=== PATIENT | female | born 1935 | race Caucasian/White ===

== ENCOUNTER 2016-11-10 11:53 | Observation (INO) | payer MEDICARE, BC ==
[2016-11-10] MEDS ORDERED: Aspirin Low Dose CHEW TAB* 81 MG PO ONE (12:30)
--- NOTE | 2016-11-10 12:55 | RAD ---
HISTORY: Chest pain COMPARISONS: November 24, 2007 VIEWS:1: Single frontal portable view of the chest at 12:35 PM FINDINGS: LINES AND TUBES: None. CARDIOMEDIASTINAL SILHOUETTE: The cardiomediastinal silhouette is normal for portable technique. PLEURA: The costophrenic angles are sharp. No pleural abnormalities are noted. LUNG PARENCHYMA: There is hyperinflation. ABDOMEN: The upper abdomen is clear. There is no subphrenic gas. BONES AND SOFT TISSUES: No bone or soft tissue abnormalities are noted. IMPRESSION: HYPERINFLATION NO ACTIVE CARDIOPULMONARY DISEASE.
[2016-11-10 12:56] LABS: Hematocrit 42 % (35-47); Hemoglobin 14.2 g/dl (12.0-16.0); Mean Corpuscular HGB Conc 34 g/dl (31-36); Mean Corpuscular Hemoglobin 33 pg (27-31); Mean Corpuscular Volume 97 fL (80-97); Mean Platelet Volume 10 um3 (7.4-10.4); Red Blood Count 4.35 10^6/ul (4.0-5.4); Red Cell Distribution Width 13 % (10.5-15); White Blood Count 8.1 10^3/ul (3.5-10.8)
[2016-11-10 13:08] LABS: ALT 23 U/L (7-52); Albumin 4.3 g/dL (3.2-5.2); Alkaline Phosphatase 62 U/L (34-104); BUN/Creatinine Ratio 27.9 (8-20); Blood Urea Nitrogen 19 mg/dL (6-24); CO2 Carbon Dioxide 23 mmol/L (22-32); Calcium 8.8 mg/dL (8.6-10.3); Chloride 102 mmol/L (101-111); EGFR African American 107.6 (>60); EGFR Non-African American 83.7 (>60); Globulin 3.3 g/dL (2-4); Glucose 122 mg/dL (70-100); Sodium 132 mmol/L (133-145); Total Protein 7.6 g/dL (6.4-8.9)
--- NOTE | 2016-11-10 14:29 | ED ---
Alejandrina Young Salem, scribed for Abel Beth MD on 11/10/16 at 1253 . Palpitations / Dysrhythmia - HPI Summary HPI Summary: Patient is a 80 y/o female who presents to the ED per EMS with palpitations since earlier today. She states she was hurrying her steps, but not running when her chest began to feel heavy. She then felt chest tightness, palpitations , weakness in the upper extremities (above the elbow), and discomfort between the shoulder blades. She denies lightheadedness or dizziness. She reports she then experienced two spells of general weakness and had to sit down. She also reports she received 3 81mg ASA at Urgent Care and took one at home before going to . She states she is physically active and that she walks a mile a day , twice a day and does core exercises in the pool. She reports taking Fosamax once a week. Her last Stress test was approximately 3 years ago. - History of Current Complaint Chief Complaint: EDDysrhythmPalp Time Seen by Provider: 11/10/16 12:09 Hx Obtained From: Patient, Family/Leaf Tinner Onset/Duration: Gradual Onset, Lasting Hours, Resolved Timing: Constant Severity Initially: Moderate Severity Currently: Moderate Character: Fast Aggravating: Exertion - Mild. Alleviating: Nothing - Allergy/Home Medications Allergies/Adverse Reactions: Allergies Allergy/AdvReac Type Severity Reaction Status Date / Time Erythromycin Allergy UPSET Verified 06/07/12 09:17 STOMACH Sulfa Antibiotics Allergy Nausea And Verified 06/07/12 09:17 Vomiting Home Medications: Home Medications Alendronate (NF) [Fosamax (NF)] 70 mg PO WEEKLY 11/10/16 [History Confirmed ] Aspirin EC Low Dose* [Ecotrin EC Low Dose 81 MG*] 81 mg PO DAILY 11/10/16 [ History Confirmed 11/10/16] PMH/Surg Hx/FS Hx/Imm Hx Previously Healthy: Yes Respiratory History: Denies: Other Respiratory Problems/Disorders GI History: Reports: Other GI Disorders - pelvic pain intermittent Musculoskeletal History: Reports: Hx Osteoporosis Sensory History: Reports: Hx Cataracts, Hx Contacts or Glasses - GLASSES Denies: Hx Hearing Aid Opthamlomology History: Reports: Hx Cataracts, Hx Contacts or Glasses - GLASSES - Cancer History Hx Chemotherapy: No Hx Radiation Therapy: No - Surgical History Surgery Procedure, Year, and Place: total hysterectomy,[place], appendectomy. 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 Lives: Alone Alcohol Use: None Substance Use Type: Reports: None Hx Tobacco Use: No Smoking Status (MU): Never Smoked Tobacco Review of Systems Negative: Fever Positive: Chest Pain - tightness. Positive: Other - Weakness in upper extremities (above the elbow), and discomfort between the shoulder blades. Neurological: Other - No lightheadedness or dizziness. Positive: Weakness All Other Systems Reviewed And Are Negative: Yes Physical Exam Triage Information Reviewed: Yes Vital Signs On Initial Exam: Initial Vitals Temp Pulse Resp BP Pulse Ox 99 F 105 16 145/92 96 11/10/16 12:00 11/10/16 12:00 11/10/16 12:00 11/10/16 12:00 11/10/16 12:00 Vital Signs Reviewed: Yes Appearance: Positive: Well-Appearing, No Pain Distress Skin: Positive: Warm Head/Face: Positive: Normal Head/Face Inspection ENT: Positive: Normal ENT inspection Neck: Positive: Supple, Nontender Respiratory/Lung Sounds: Positive: Clear to Auscultation, Breath Sounds Present Cardiovascular: Positive: Normal, RRR. Negative: Murmur Abdomen Description: Positive: Nontender Musculoskeletal: Positive: Normal, Strength/ROM Intact Neurological: Positive: Normal, Sensory/Motor Intact, Alert, Oriented to Person Place, Time, CN Intact II-III Psychiatric: Positive: Normal - Clint Coma Scale Coma Scale Total: 15 Diagnostics - Vital Signs Vital Signs Temp Pulse Resp BP Pulse Ox 11/10/16 12:30 97 17 140/78 95 11/10/16 12:09 103 20 11/10/16 12:01 103 145/92 97 11/10/16 12:00 99 F 105 16 145/92 97 - Laboratory Lab Results: Lab Results 11/10/16 11/10/16 11/10/16 Range/Units 12:00 12:00 12:00 WBC 8.1 (3.5-10.8) 10^3/ul RBC 4.35 (4.0-5.4) 10^6/ul Hgb 14.2 (12.0-16.0) g/dl Hct 42 (35-47) % MCV 97 (80-97) fL MCH 33 H (27-31) pg MCHC 34 (31-36) g/dl RDW 13 (10.5-15) % Plt Count 217 (150-450) 10^3/ul MPV 10 (7.4-10.4) um3 Neut % (Auto) 78.7 (38-83) % Lymph % (Auto) 12.9 L (25-47) % [place] % (Auto) 6.8 (1-9) % Eos % (Auto) 0.9 (0-6) % Baso % (Auto) 0.7 (0-2) % Absolute Neuts (auto) 6.4 (1.5-7.7) 10^3/ul Absolute Lymphs (auto) 1.0 (1.0-4.8) 10^3/ul Absolute Monos (auto) 0.5 (0-0.8) 10^3/ul Absolute Eos (auto) 0.1 (0-0.6) 10^3/ul Absolute Basos (auto) 0.1 (0-0.2) 10^3/ul Absolute Nucleated RBC 0 10^3/ul Nucleated RBC % 0 INR (Anticoag Therapy) (0.89-1.11) Sodium 132 L (133-145) mmol/L Potassium TNP Chloride 102 (101-111) mmol/L Carbon Dioxide 23 (22-32) mmol/L Anion Gap TNP BUN 19 (6-24) mg/dL Creatinine 0.68 (0.51-0.95) mg/dL Est GFR ( Amer) 107.6 (>60) Est GFR (Non-Af Amer) 83.7 (>60) BUN/Creatinine Ratio 27.9 H (8-20) Glucose 122 H (70-100) mg/dL Lactic Acid 1.3 (0.5-2.0) mmol/L Calcium 8.8 (8.6-10.3) mg/dL Magnesium TNP Total Bilirubin 0.50 (0.2-1.0) mg/dL AST TNP ALT 23 (7-52) U/L Alkaline Phosphatase 62 (34-104) U/L Troponin I 0.00 (<0.04) ng/mL Total Protein 7.6 (6.4-8.9) g/dL Albumin 4.3 (3.2-5.2) g/dL Globulin 3.3 (2-4) g/dL Albumin/Globulin Ratio 1.3 (1-3) 11/10/16 Range/Units 12:00 WBC (3.5-10.8) 10^3/ul RBC (4.0-5.4) 10^6/ul Hgb (12.0-16.0) g/dl Hct (35-47) % MCV (80-97) fL MCH (27-31) pg MCHC (31-36) g/dl RDW (10.5-15) % Plt Count (150-450) 10^3/ul MPV (7.4-10.4) um3 Neut % (Auto) (38-83) % Lymph % (Auto) (25-47) % [place] % (Auto) (1-9) % Eos % (Auto) (0-6) % Baso % (Auto) (0-2) % Absolute Neuts (auto) (1.5-7.7) 10^3/ul Absolute Lymphs (auto) (1.0-4.8) 10^3/ul Absolute Monos (auto) (0-0.8) 10^3/ul Absolute Eos (auto) (0-0.6) 10^3/ul Absolute Basos (auto) (0-0.2) 10^3/ul Absolute Nucleated RBC 10^3/ul Nucleated RBC % INR (Anticoag Therapy) 0.93 (0.89-1.11) Sodium (133-145) mmol/L Potassium Chloride (101-111) mmol/L Carbon Dioxide (22-32) mmol/L Anion Gap BUN (6-24) mg/dL Creatinine (0.51-0.95) mg/dL Est GFR ( Amer) (>60) Est GFR (Non-Af Amer) (>60) BUN/Creatinine Ratio (8-20) Glucose (70-100) mg/dL Lactic Acid (0.5-2.0) mmol/L Calcium (8.6-10.3) mg/dL Magnesium Total Bilirubin (0.2-1.0) mg/dL AST ALT (7-52) U/L Alkaline Phosphatase (34-104) U/L Troponin I (<0.04) ng/mL Total Protein (6.4-8.9) g/dL Albumin (3.2-5.2) g/dL Globulin (2-4) g/dL Albumin/Globulin Ratio (1-3) Result Diagrams: 11/10/16 12:00 11/10/16 12:00 Lab Statement: Any lab studies that have been ordered have been reviewed, and results considered in the medical decision making process. - Radiology CXR Radiology Interpretation Completed By: Radiologist - IMPRESSION: HYPERINFLATION NO ACTIVE CARDIOPULMONARY DISEASE. - EKG 1154 EKG Interpretation: Sinus tachycardia @ 106 bpm. No STEMI. Course/Dx - Course Course Of Treatment: 80 y/o female presents with palpitations since earlier today. She reports chest tightness, weakness in upper extremities (above the elbow), and discomfort between the shoulder blades, but denies lightheadedness or dizziness. She received ASA in the ED. EKG reveals sinus tachycardia @ 106 bpm and no STEMI. CXR reveals, per radiology, hyperinflation no active cardiopulmonary disease. Discussed case with Dr. Baron and pt will be admitted. - Diagnoses Provider Diagnoses: Chest pain - Physician Notifications Discussed Care Of Patient With: Dr. Baron (hospitalist) @ 2072. Will admit. Discharge - Discharge Plan Condition: Good Disposition: ADMITTED TO [facility] The documentation as recorded by the Alejandrina gutierrez Salem accurately reflects the service I personally performed and the decisions made by , Abel Beth MD.
[2016-11-10 14:38] LABS: Magnesium 2.4 mg/dL (1.9-2.7)
[2016-11-10] MEDS ORDERED: Enoxaparin(*) 80 MG/0.8 ML SYR SUBCUT ONE (19:00)
--- NOTE | 2016-11-10 19:28 | HP ---
HISTORY AND PHYSICAL: DATE OF ADMISSION: 11/10/16 PRIMARY CARE PHYSICIAN: Dr. Sania Cary. ATTENDING PHYSICIAN: Dr. Angel Baron* (dictated by Sue Hoffman NP) CHIEF COMPLAINT: Chest tightness. HISTORY OF PRESENT ILLNESS: Ms. Valentin is a 80-year-old female with no significant past medical history who presented to the emergency room with complaints of palpitations and chest tightness. The patient states that while she was out shopping today, she saw somebody she wanted to talk to, took 3 steps t a quick pace and noticed that she developed chest heaviness. The patient reports that she was not running, but was hurrying. The patient reports that she then went for a walk at [facility] when she developed pain down the midline of her back and developed what she felt like was weakness from her elbows to her shoulders in bilateral arms. The patient denied any lightheadedness or dizziness or diaphoresis. The patient then continued on with her day and [facility] when she again developed this discomfort. She presented to urgent care for further evaluation. The patient received 3 81 mg tablets of aspirin at urgent care. EMS was called and the patient was brought to the emergency room. While in the emergency room, the patient had an EKG showing sinus tachycardia with a rate of 106. There are no previous EKGs for comparison. The patient had labs that were unremarkable. She has troponin at 0.00. The patient had a chest x-ray showing hyperinflation and no active cardiopulmonary disease. Hospitalists were asked to evaluate the patient for admission. It is to note that the patient reports having chest tightness when walking on an inclined at hurried pace, she reports that when she stops, the discomfort stops. She states she has had this for approximately the last 3 to 4 years and had a stress test with Dr. Izaguirre approximately 3 to 4 years ago. The patient also reports that she had a Holter monitor in June 2016 with no acute findings. The patient denies any recent fever, chills, edema, cough, shortness of breath, nausea, vomiting or diarrhea. PAST MEDICAL HISTORY: 1. Osteoporosis. 2. History of colon polyps. 3. History of sigmoid diverticulosis. 4. Osteoarthritis. 5. History of recurrent UTIs. 6. History of Lyme disease, diagnosed in the fall of 2015 and completed a course of doxycycline. PAST SURGICAL HISTORY: 1. Status post cholecystectomy. 2. Status post hysterectomy. 3. Status post bilateral salpingo-oophorectomy. HOME MEDICATIONS: Include, 1. Aspirin 81 mg oral daily. 2. Fosamax 70 mg oral weekly on Sundays. FAMILY HISTORY: The patient reports that her father passed from an IA at age 77. The patient reports that her father's family has a significant heart history. The patient denies any family history of diabetes mellitus or cancer. SOCIAL HISTORY: The patient denies tobacco, alcohol or recreational drug use. 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 Her son Aelx Valentin will be her surrogate decision maker in the event that she is unable to make decisions for herself. REVIEW OF SYSTEMS: I performed a 14-point review of systems. All the pertinent positives and negatives are mentioned in the history of present illness. The remaining review of systems are negative. PHYSICAL EXAMINATION GENERAL: The patient is alert, pleasant, appears to be in no acute distress. VITAL SIGNS: Temperature 99.0, heart rate 91, respiratory rate 18, O2 sat 95% on room air. Blood pressure 139/79. HEENT: Normocephalic, atraumatic. Pupils are equal and reactive to light. Extraocular movements are intact. NECK: Supple. There is no lymphadenopathy noted. RESPIRATORY: There is no accessory muscle use. Lungs are clear to auscultation bilaterally. CARDIOVASCULAR: Regular rate and rhythm. S1 and S2 present. There are no murmurs, rubs or gallops heard. ABDOMEN: Soft, nontender, and nondistended. There are bowel sounds present x4. EXTREMITIES: There is no lower extremity edema. DP and PT pulses are 2+ and symmetric. MUSCULOSKELETAL: There is no clubbing or cyanosis noted. The patient exhibits good strength in all extremities. NEUROLOGIC: The patient is alert and oriented x4. Cranial nerves II to XII are grossly intact. PSYCHOLOGICAL: The patient is calm and cooperative. DIAGNOSTIC STUDIES/LABORATORY DATA: Sodium 132, potassium 3.7, chloride 102, CO2 23, BUN 19, creatinine 0.68, glucose 122, magnesium 2.4. White blood cell count 8.1, hemoglobin 14.2, hematocrit 42, platelet count 217. INR is 0.93. Troponins 0.00. EKG shows sinus tachycardia with a rate of 106. There are no signs of acute ischemia noted. There are no previous EKGs for comparison. Chest x-ray from today: Radiologist's impression: Hyperinflation, no active cardiopulmonary disease. IMPRESSION: Ms. Valentin is a 80-year-old female with no significant past medical history who presets to the emergency room with complaints of chest discomfort and palpitations. She will be admitted as an observation for chest pain, rule out acute coronary syndrome. ASSESSMENT: 1. Chest pain. The patient will be admitted to rule out acute coronary syndrome. We will trend the patient's troponins q. 3 hours for 2 more times or until they peak. We will recheck an EKG in the morning. The patient is currently chest pain free. The patient's JOSHUA score is 2. She will be continued on her aspirin 81 mg. We will check fasting lipids in the morning. The patient will have an exercise nuclear stress test tomorrow and be monitored on telemetry. 2. Fluids, electrolytes, and nutrition. The patient will be on a heart healthy diet. 3. Code status. Full Code. 4. DVT prophylaxis. She is at high risk and will be placed on subcu Heparin. 5. Disposition. Observation for chest pain, rule out acute coronary syndrome. TIME SPENT: The time for this admission was 60 minutes and 40 minutes was spent with the patient discussing medications, past medical history, events leading up to her arrival today and performing a physical examination. The case was reviewed with the attending Dr. Baron who agrees with the plan of care. Reviewed by GRISEL HENNESSY 11/10/16 1937 CC: Dr. Sania Cary* [id number]/[facility] #: [id number] [place]
--- NOTE | 2016-11-10 19:40 | PN ---
Hospitalist Progress Note Repeat Troponin 0.09 and 0.13. Pt continues to deny chest discomfort at this time. Suspect this represents demand ischemia, but could also be an NSTEMI. Will continue to trend troponins until peak and give a dose of Lovenox now.
[2016-11-10] MEDS ORDERED: Heparin VIAL(*) 5000 UNITS/ML VIAL (FIVE THOUSAND) SUBCUT SCH (22:00)
[2016-11-11 07:50] LABS: BUN/Creatinine Ratio 34.5 (8-20); Calcium 8.3 mg/dL (8.6-10.3); EGFR African American 129.3 (>60); EGFR Non-African American 100.5 (>60)
[2016-11-11] MEDS: Aspirin EC Low Dose* 81 MG TAB.EC PO SCH (07:53)
[2016-11-11 08:03] LABS: Troponin I 0.07 ng/mL (<0.04)
[2016-11-11] MEDS ORDERED: Perflutren Prot Type A Micr (NF) 3 ML SDV IV ONE ×2 (11:55→13:00)
[2016-11-11] MEDS ORDERED: Metoprolol Succinate XL TAB* 25 MG PO SCH (12:00)
--- NOTE | 2016-11-11 13:04 | ECHO ---
Patient: CODY HOOPER [facility] Rec#: [id number] : 1935 Date: 11/11/2016 Age: 80y Height: 170.18 cm / 67.0 in Weight: 65.77 kg / 145.0 lbs Sex: F BSA: 1.76 Room#: [facility] Admit Date#: 11/10/2016 Type: Inpatient Referring: Taiwo Maciel MD Reading: Taiwo Maciel MD Welder Apprentice Combination: Yazmin Chaney RDCS,RDMS Welder Apprentice Combination: Sue Beck CC: Sania Cary MD Transthoracic Echocardiogram Indication: SVT BP: 152/74 HR: 79 Rhythm: NSR Findings History: Lyme disease 2016 Technical Comments: The study is technically difficult. The study is technically limited due to poor apical windows. Completed 1310. Left Ventricle: The left ventricular chamber size is normal. Mild concentric left ventricular hypertrophy is observed. There is a prominent septal knuckle. Global left ventricular wall motion and contractility are within normal limits. The left ventricle appears hyperdynamic. The estimated ejection fraction is greater than 65%. Abnormal left ventricular diastolic filling is observed, consistent with impaired relaxation. Left Atrium: The left atrium is slightly dilated. Right Ventricle: The right ventricle wall thickness is mildly increased. The right ventricle is mildly dilated. The right ventricular global systolic function is normal. Right Atrium: The right atrial cavity size is normal. Aortic Valve: The aortic valve is trileaflet. There is no evidence of aortic valve thickening. There is no evidence of aortic regurgitation. There is no evidence of aortic stenosis. Mitral Valve: The mitral valve leaflets are mildly thickened. There is no evidence of mitral regurgitation. There is no evidence of mitral stenosis. Tricuspid Valve: The tricuspid valve leaflets are normal. There is mild tricuspid regurgitation. No pulmonary hypertension is noted. Pulmonic Valve: The pulmonic valve appears normal. There is trace to mild pulmonic regurgitation. There is no pulmonic stenosis. Pericardium: There is no significant pericardial effusion. Aorta: There is no dilatation of the ascending aorta. There is no dilatation of the aortic arch. There is no dilation of the aortic root. There is plaque visualized in the ascending aorta. Venous: The inferior vena cava appears normal in size. There is a greater than 50% respiratory change in the inferior vena cava dimension. Contrast: Optison was used to optimize study. 2.5 mL of Optison was utilized. Intravenous contrast was used to enhance endocardial border definition. Conclusions The study is technically difficult. The study is technically limited due to poor apical windows. Mild concentric left ventricular hypertrophy is observed. The left ventricle appears hyperdynamic. The estimated ejection fraction is greater than 65%. Abnormal left ventricular diastolic filling is observed, consistent with impaired relaxation. There is mild tricuspid regurgitation. There is trace to mild pulmonic regurgitation. There is plaque visualized in the ascending aorta. No reports of prior studies offered for comparison. Measurements Name Value Normal Range RVIDd (AP) 2D 3.3 cm (0.9 - 2.6) RVDdMajor (2D) 3.7 cm (2.2 - 4.4) RVAW (2D) 0.6 cm (0.2 - 0.5) RAd ISD 4CH 4.4 cm (3.4 - 4.9) RA (A4C)W 3.7 cm (2.9 - 4.6) IVSd (2D) 1.4 cm (0.6 - 1) LVPWd (2D) 1.14 cm (0.6 - 1) LVIDd (2D) 3.7 cm (3.6 - 5.4) LVIDs (2D) 2.3 cm - LV FS (2D) 38 % (25 - 45) Aortic Annulus 2.08 cm (1.4 - 2.6) Ao root diameter (2D) 2.9 cm (2.1 - 3.5) Ascending Ao 3.2 cm (2.1 - 3.4) Aortic arch 2.7 cm (1.8 - 3.4) LA dimension (AP) 2D 2.6 cm (2.3 - 3.8) LAd ISD 4CH 4.4 cm (2.9 - 5.3) LA ISD 4CH W 3.8 cm (2.5 - 4.5) Name Value Normal Range LA ESV SP 4CH (A/L) 51 ml - LA ESV SP 2CH (A/L) 57 ml - LA ESV BP (A/L) 58 ml - LA ESV BP (A/L) index 32.75 ml/m2 - LA ESV SP 4CH (MOD) 51 ml - LA ESV SP 2CH (MOD) 54 ml - Name Value Normal Range MV E-wave Vmax 0.6 m/sec - MV deceleration time 302 msec - MV A-wave Vmax 0.81 m/sec - MV E:A ratio 0.76 ratio - LV septal e' Vmax 0.04 m/sec - LV lateral e' Vmax 0.05 m/sec - LV E:e' septal ratio 15 ratio - LV E:e' lateral ratio 12 ratio - Name Value Normal Range AV Vmax 1.3 m/sec - AV VTI 24.97 cm - AV peak gradient 6.73 mmHg - AV mean gradient 3.82 mmHg - LVOT Vmax 0.96 m/sec - LVOT VTI 19.36 cm - LVOT peak gradient 3.71 mmHg - LVOT mean gradient 2.09 mmHg - SULTANA Vmax 0.6 m/sec - Name Value Normal Range TR Vmax 2.5 m/sec - TR peak gradient 25 mmHg - RAP 3 mmHg - RVSP 28 mmHg - IVC diameter 1.2 cm - Name Value Normal Range PV Vmax 0.93 m/sec - PV peak gradient 3.42 mmHg - RVOT diameter 2.78 cm -
--- NOTE | 2016-11-11 14:58 | CONS ---
CARDIOLOGY CONSULT: DATE OF CONSULT: 11/11/16 INDICATION FOR CONSULT: The patient without abnormal cardiac enzymes with history of chest discomfort, assess cardiac status. HISTORY OF PRESENT ILLNESS: The patient is a pleasant 80-year-old female, who states that in the past, she has been evaluated for her cardiac status dating back as far as a stress test in 2007, during which time, she had a hypertensive response to exercise, but no acute changes were seen on EKG and nuclear images showed reportedly a markedly decreased ejection fraction with exercise with irregular myocardial contractility. There were no defects or stress-induced areas or fixed areas noted. In resting, her ejection fraction was 76%. I do not know what transpired at that time. She also had a Holter monitor done that showed no supraventricular ectopic activity, but she had a mild degree of ventricular ectopic activity. According to the patient, she has since that time had a repeat stress test done with Dr. Izaguirre and perhaps even an echocardiogram, but I do not have that report available. From that time on, she describes occasionally having symptoms of chest tightness and palpitations that are brief in nature if she overexerts herself. She offers an example if she walks up a hill, she can sometimes get that, she just stops, rest, it goes away quickly and then she is able to continue even going up the hill without provoking the symptom. On the day of admission, the patient stated that she was in her yard and she hurried a little bit and developed a tightness and palpitations. She stated that she thought it was brief in nature and she went to the car and with her sister to go walking at [facility]. When she started walking, she just felt tired and weak as if she could not do it and had to actually turn around and go back to the car. In doing that, she had to stop multiple times and just rest. Once in the car, she has felt somewhat better and her sister suggested maybe she should have it checked out; at that point, she decided not to, but they went for coffee at [employer]. When she walked from the parking lot in, she had to constantly stop and states that she felt profoundly weak. She decided to then have it checked out and apparently went to [facility]. According to the patient, she had an EKG done there and reviewing an EKG in the chart that is unlabeled as far as the location , but was timed and a time that would correspond with [facility], she was in SVT at 150 beats a minute. According to the patient, they tried to have her Valsalva and I guess it did not work and as such [facility] was called to take her to the hospital. According to [facility]' note, they did two more EKGs and with her in SVT and tried to get her to Valsalva as well. I do not see that they gave her any adenosine en route. Once at [facility], a repeat EKG apparently documented sinus tachycardia and she was no longer in the SVT. Overnight, her cardiac enzymes elevated from a troponin of 0.00 to 0.09, 0.13, back down to 0.11 and then to 0.07. We are now asked to see her in consult to comment on her cardiac status. In discussing with her, she generally does not have symptoms when she goes up and down the stairs at home carrying things. When she does get the symptoms, they are generally brief in nature and once they are over, she can continue doing the same activity. She can walk on leveled ground without provoking significant discomfort. Cardiac risk factors included negative history of hypertension, negative history of hyperlipidemia, negative history of diabetes, no family history of early coronary artery disease, and she smoked in the very distant past, not for a prolonged period of time. PAST MEDICAL HISTORY: Includes osteoporosis, colon polyps, history of sigmoid diverticulosis, arthritis, recurrent UTIs, and a history of Lyme disease, apparently diagnosed in the fall of 2016. PAST SURGICAL HISTORY: Includes status post cholecystectomy, hysterectomy, bilateral salpingo-oophorectomy. MEDICATIONS AT HOME: Include: 1. Aspirin 81 mg a day. 2. Fosamax 70 mg weekly. FAMILY HISTORY: Her father at 77 from a heart attack, but no early heart disease. SOCIAL HISTORY: She has a remote history of smoking. Does not use alcohol or recreational drugs. REVIEW OF SYSTEMS: As per the HPI. PHYSICAL EXAM: When I see her now reveals a pleasant female, in no acute distress. Blood pressure 152/74, pulse is in the 70s to 80s, respirations are 18 , O2 saturations 94% on room air. Neck is supple. No increased JVP. Carotid with good upstroke and volume without bruits. Conjunctivae are pink. Sclerae are clear. Lungs reveal no accessory muscle usage. There is good excursion. Lungs are clear to A and P. Heart: Reveals no visible heaves. The PMI is slightly laterally displaced and maybe mildly enlarged. No right ventricular heave is present. Normal S1, S2. No significant systolic or diastolic murmur. Abdomen is soft, nontender without organomegaly. Extremities are without clubbing, cyanosis, or darrel pitting edema. Peripheral pulses are intact. Femoral pulses are noted without bruit. Neuro: The patient is alert, oriented with normal mentation. Musculoskeletal: The patient with normal gait. Psychiatric: The patient with normal affect. DIAGNOSTIC STUDIES/LAB DATA: Admission laboratory results revealed sodium 132, potassium 3.7, chloride 102, bicarb 23, BUN and creatinine 19 and 0.68, and glucose 122, nonfasting. Initial troponin as mentioned earlier was 0.00. SGPT is 23, SGOT is 32. Magnesium is 2.4. Hemoglobin and hematocrit are 14.2 and 42 with a platelet count of 217,000, white count 8100. INR was 0.93. In reviewing all of the electrocardiograms starting with the one from Urgent Care shows SVT at a heart rate of 154. There is right axis deviation. There are no acute ST-segment changes suggestive of ischemia at a heart rate of 154. Repeat EKG at 1154 a.m. on 11/10/16 shows sinus tachycardia, heart rate 106, an indeterminate axis is noted. Repeat EKG then done this morning reveals sinus rhythm, heart rate of 69. There are no acute ST-T wave changes and there is a left axis deviation seen. OVERALL ASSESSMENT: Ms. Valentin presents with a probably sustained supraventricular tachycardia for a prolonged period of time, symptomatic with this. She has had symptoms like this before, but never sustained and I presume never caught on any monitor. Her enzymes most likely are secondary to demand from heart rate being that high for so long as she is able to do most of her activities in general without provoking the symptom on every attempt at exerting herself. Given her abnormal axis deviations, I favor starting with an echocardiogram to re-look at it and trying to obtain the records of prior echocardiograms. I would recommend starting her on a beta kaylee. If she has completely normal LV function, we will proceed with either an exercise stress test or a Lexiscan stress test to rule out ischemia, which I would put on a lower level of risk. Thank you very much for asking me to see her and I will follow with you. CC: Dr. Sania Cary* [id number]/[facility] #: [id number] MTDDonal
[2016-11-12 05:54] LABS: C Reactive Protein 8.71 mg/L (< 5.00)
[2016-11-12 05:57] LABS: Troponin I 0.03 ng/mL (<0.04)
[2016-11-12] MEDS ORDERED: Metoprolol Succinate XL TAB* 25 MG PO SCH (07:00)
[2016-11-12] MEDS: Aspirin EC Low Dose* 81 MG TAB.EC PO SCH (09:35)
[2016-11-12 10:00] VITALS: BP 114/63
--- NOTE | 2016-11-12 10:21 | RAD ---
HISTORY: Abnormal cardiac enzymes, chest pain COMPARISONS: January 31, 2008 TECHNIQUE: A 1 day stress/rest myocardial perfusion study was performed, with exercise stress. The exercise portion was performed using the Nima protocol, for a total METs of 7. The stress portion was monitored by Dr. Maciel. Gated SPECT imaging was performed, with CT-based attenuation correction DOSE: Stress: Technetium 99m tetrofosmin, 25.54 millicuries, injected at 8:34 AM on November 12, 2016 Rest: Technetium 99m tetrofosmin, 10.15 millicuries, injected at 6:20 AM on November 12, 2016 Pharmacologic agent: None FINDINGS: CARDIAC MONITORING: Peak heart rate of 126 bpm, 142% of predicted EF: 35 % TID: 0.91 MOTION: There is diffuse hypokinesia PERFUSION: There is a small reversible defect along the lateral wall on the ninth corrected images that resolves on the attenuation correction images. There is a small fixed defect of attenuation correction images which May BE artifactual. There is no definite fixed or reversible perfusion defect OTHER: None IMPRESSION: DECREASED EJECTION FRACTION. NO DEFINITE FIXED OR REVERSIBLE PERFUSION DEFECTS ASSESSMENT: INTERMEDIATE RISK. Based on imaging criteria from ACC/AHA 2002. Guideline Update for the Management of Patient's with Chronic Stable Angina, table 23. Noninvasive Risk Stratification.
--- NOTE | 2016-11-14 00:58 | DS ---
DISCHARGE SUMMARY: DATE OF ADMISSION: 11/10/16 DATE OF DISCHARGE: 11/12/16 DISCHARGE DIAGNOSES: 1. Supraventricular tachycardia. 2. Elevated troponin secondary to stress ischemia. 3. Osteoporosis. 4. Diverticulosis. 5. History of ovarian cancer. 6. History of recurrent urinary tract infection. 7. History of Lyme disease. 8. Status post cholecystectomy. 9. Hysterectomy. 10. Bilateral salpingo-oophorectomy. HISTORY: Gianna Valentin is a 80-year-old woman admitted with history of chest tightness and elevated troponins with documented SVT. Please see the dictated admission note for details of the present illness, past medical history, family history, social and personal history, review of systems, and physical examination in addition to the history as noted in the dictated note. The patient was also seen to have SVT on EKG. LABORATORY DATA: CBC on 11/10/16: WBC 8.1, H and H 14.2/42, MCV 97, PLT 217, 000. INR 0.93. Chemistries on admission, sodium 132, potassium 3.7, chloride 102, CO2 23, BUN and creatinine 19/0.68, glucose 122 (non-fasting), calcium 8.8 , magnesium 2.4. Rest of the comprehensive metabolic panel was within normal limits. Lipids: Cholesterol 218, HDL 41, LDL 154, triglycerides 116. Troponin on 11/10/16 at 12 o'clock 0, 1520 was 0.09, 1809 was 0.13. On 11/11/16, at 0020 was 0.11, at 0517 was 0.07 and on 11/12/16 at 0517 was 0.03. Lactic acid 1.3 on admission. IMAGING DATA: Chest x-ray on 11/10/16, hyperinflation, no active cardiopulmonary disease. Nuclear medicine scan on 11/12/16, one-day stress/ rest myocardial perfusion study performed with exercise stress, there was a small reversible defect along the lateral wall that resolved on the attenuation correction image. There was a small fixed defect of the lateral wall on attenuation correction images, which may be artifactual. There was no definite fixed or reversible perfusion noted. There was a decreased ejection fraction noted. No definite fixed or reversible perfusion defects. EF was calculated at 35%. This was felt to be artifactually low. Transthoracic echocardiogram showed a technically difficult study. It was done with Optison. The mitral valve showed mild thickening. No other abnormalities were noted. The estimated ejection fraction on this study was 65%. There was some left ventricular diastolic filling abnormality consistent with impaired relaxation. EKG on 11/10/16, initial study showed SVT, rate about 150. Second EKG showed sinus tachycardia, rate of 106. Stress test done on 11/12/16, showed the patient exercised 5 minutes 42 seconds achieving 7 METs, 89% age predicted with normal 1-minute heart rate. Baseline hypertension with normal increase with exertion. No signs of ischemia. No EKG changes of ischemia. No arrhythmias provoked. This was done with the patient on beta-kaylee. HOSPITAL COURSE: The patient was admitted to telemetry. She had no further arrhythmias after she converted from SVT to sinus tachycardia and then sinus rhythm. She had no chest pain. Her troponins went up and then came down. Her EKG remained normal. Her JOSHUA score was 2. She was continued on baby aspirin. She was placed on heparin for DVT prophylaxis. She was a full code. She was seen in cardiac consultation by Dr. Maciel. He uncovered that the patient had had SVT prior to coming into the hospital. He felt that she probably has sustained supraventricular tachycardia for prolonged period of time and had been symptomatic with this. He felt that her elevated troponin was most likely secondary to demand from heart rate being that high for so long as she is able to most of her activities in general without provoking the symptoms. Given her abnormal axis deviation, he favored starting with an echocardiogram to relook at her echo. He recommended starting her on a beta-kaylee. If she had normal LV function, which she did, he recommended doing a stress test, which was done ( see above). By 11/12/16, after her stress test was done, it was felt that she could be safely discharged. DISCHARGE MEDICATIONS: She is being discharged on the following medications. 1. Alendronate 70 mg weekly. 2. Aspirin 81 mg daily. 3. Metoprolol XL 25 mg daily. 4. Ranitidine 150 mg everyday as needed. 5. B12 1000 mcg daily. 6. Estrace vaginal cream twice a week. DIET: Regular. ACTIVITY: As tolerated. FOLLOWUP: She will be following up with me in about a week's time. She will call if she has any further symptoms. [id number]/[facility] #: [id number] ALTON
== END 2016-11-12 11:30 | disposition home or self-care (01) ==
LOC: ED 11:53 → MEDTELE 14:06
PROVIDERS: ADMIT Hospitalist; ATTEND Internal Medicine Geriatric Medicine
DX: I47.1 Supraventricular tachycardia (principal); R74.8 Abnormal levels of other serum enzymes; R07.9 Chest pain, unspecified; M81.0 Age-related osteoporosis without current pathological fracture; Z85.43 Personal history of malignant neoplasm of ovary; Z87.891 Personal history of nicotine dependence; I51.7 Cardiomegaly; Z88.1 Allergy status to other antibiotic agents; Z88.2 Allergy status to sulfonamides; Z79.82 Long term (current) use of aspirin; Z79.899 Other long term (current) drug therapy
CPT/HCPCS: 36415; 71010; 78452; 80048; 80053; 80061; 83605; 83735; 84484; 85025; 85610; 85652; 86140; 93005; 93017; 93306; 96372; 99284; A9270-GY; A9502; C8929; G0378; J1650; Q9956

== ENCOUNTER 2017-12-16 07:26 | Emergency (ER) | payer MEDICARE, OTHER ==
[2017-12-16 07:43] VITALS: BP 126/64
--- NOTE | 2017-12-16 08:26 | UC ---
Throat Pain/Nasal Lewis HPI - HPI Summary HPI Summary: 82 yo WF p/e sore throat after a 3 day bout of laryngitis, now the throat pain is radiating to B/L ears - History of Current Complaint Chief Complaint: UCGeneralIllness Stated Complaint: SORE THROAT Time Seen by Provider: 12/16/17 07:47 Hx Obtained From: Patient ?: No Severity: Moderate Pain Intensity: 7 Cough: None Associated Signs & Symptoms: Positive: Negative - Epiglottits Risk Factors Epiglottis Risk Factors: Negative - Allergies/Home Medications Allergies/Adverse Reactions: Allergies Allergy/AdvReac Type Severity Reaction Status Date / Time erythromycin base Allergy Intermediate Unknown Verified 12/16/17 07:46 [From Erythrocin] Reaction Details Sulfa (Sulfonamide Allergy Intermediate Unknown Verified 12/16/17 07:46 Antibiotics) Reaction Details Home Medications: Home Medications Metoprolol Mcfadden/Hydrochlorothiaz [Metoprolol ER-Hctz 25-12.5 mg] 1 tab PO DAILY WITH MEAL 12/16/17 [History Confirmed 12/16/17] PMH/Surg Hx/FS Hx/Imm Hx Previously Healthy: Yes - Surgical History Surgical History: Yes Surgery Procedure, Year, and Place: total hysterectomy, [place], appendectomy, bilat cataract - Family History Known Family History: Positive: Cardiac Disease - Social History Alcohol Use: None Substance Use Type: None Smoking Status (MU): Former Smoker Review of Systems Constitutional: Negative Skin: Negative Eyes: Negative ENT: Sore Throat, Ear Ache Respiratory: Negative Cardiovascular: Negative Gastrointestinal: Negative Genitourinary: Negative Motor: Negative Neurovascular: Negative Musculoskeletal: Negative Neurological: Negative Psychological: Negative All Other Systems Reviewed And Are Negative: Yes Physical Exam Triage Information Reviewed: Yes Appearance: No Pain Distress Vital Signs: Initial Vital Signs Temp 36.9 C 12/16/17 07:36 Pulse 68 12/16/17 07:36 Resp 20 12/16/17 07:36 BP 126/64 12/16/17 07:36 Pulse Ox 98 12/16/17 07:36 Eye Exam: Normal ENT: Positive: TM dull - B/L, Other - mild erythema around B/L TM Dental Exam: Normal Neck: Positive: Tenderness @ - mild anterior cervical LN B/L Respiratory Exam: Normal Cardiovascular Exam: Normal Abdominal Exam: Normal Musculoskeletal Exam: Normal Neurological Exam: Normal Psychological Exam: Normal Skin Exam: Normal Throat Pain/Nasal Course/Dx - Course Course Of Treatment: rapid strep neg Assessment/Plan: B/L ear pains- 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 pharyngitis Discharge - Sign-Out/Discharge Documenting (check all that apply): Discharge/Admit/Transfer - Discharge Plan Condition: Stable Disposition: HOME Prescriptions: Amoxicillin/Clavulanate TAB* [Augmentin TAB 500 mg*] 500 mg PO BID 7 Days #14 tab Patient Education Materials: Ear Infection (ED) Referrals: Sania Cary MD [Primary Care Provider] - - Billing Disposition and Condition Condition: STABLE Disposition: HOME
== END 2017-12-16 08:40 | disposition home or self-care (01) ==
LOC: UCEAST 07:26
DX: H66.93 Otitis media, unspecified, bilateral (principal); J02.9 Acute pharyngitis, unspecified; Z88.1 Allergy status to other antibiotic agents; Z88.2 Allergy status to sulfonamides; Z87.891 Personal history of nicotine dependence
CPT/HCPCS: 87651; 99212; G0463